=== PATIENT | male | born 1955 | race African-American/Black ===

== ENCOUNTER → 2016-10-03 | Outpatient (CLI) | payer OTHER ==
[2016-10-03 10:26] LABS: THYROID STIMULATING HORMONE 7.76 uIU/ml (0.34-5.60)
[2016-10-03 10:31] LABS: FREE THYROXIN (T4) 0.42 ng/dL (0.58-1.64)
== END | disposition home or self-care (01) ==
LOC: CLAB 09:12
PROVIDERS: Internal Medicine Endocrinology, Diabetes & Metabolism
DX: E05.00 Thyrotoxicosis with diffuse goiter without thyrotoxic crisis or storm (principal)
CPT/HCPCS: 36415; 84439; 84443; 84481

== ENCOUNTER → 2017-01-10 | Outpatient (CLI) | payer OTHER ==
[2017-01-10 10:07] LABS: THYROID STIMULATING HORMONE 0.02 uIU/ml (0.34-5.60)
[2017-01-10 10:13] LABS: FREE THYROXIN (T4) 1.89 ng/dL (0.58-1.64)
== END | disposition home or self-care (01) ==
LOC: CLAB 08:18
PROVIDERS: Internal Medicine Endocrinology, Diabetes & Metabolism
DX: E05.00 Thyrotoxicosis with diffuse goiter without thyrotoxic crisis or storm (principal)
CPT/HCPCS: 36415; 84439; 84443; 84481

== ENCOUNTER → 2017-02-28 | Outpatient (CLI) | payer OTHER ==
[2017-02-28 09:57] LABS: ALBUMIN SERUM 4.2 g/dL (3.5-5.0); BILIRUBIN, DIRECT 0.1 mg/dL (0.0-0.2); BILIRUBIN,INDIRECT 0.3 mg/dL (0.0-0.9); BILIRUBIN,TOTAL 0.4 mg/dL (0.2-2.0); PROTEIN TOTAL SERUM 7.2 g/dL (6.0-8.3)
[2017-02-28 10:00] LABS: THYROID STIMULATING HORMONE 0.06 uIU/ml (0.34-5.60)
[2017-02-28 10:05] LABS: FREE T3 3.6 pg/mL (2.5-3.9)
[2017-02-28 10:06] LABS: FREE THYROXIN (T4) 0.62 ng/dL (0.58-1.64)
== END | disposition home or self-care (01) ==
LOC: CLAB 08:31
PROVIDERS: Internal Medicine Endocrinology, Diabetes & Metabolism
DX: E05.00 Thyrotoxicosis with diffuse goiter without thyrotoxic crisis or storm (principal); Z79.899 Other long term (current) drug therapy
CPT/HCPCS: 36415; 80076; 84439; 84443; 84481